=== PATIENT | female | born 1965 | race Caucasian/White ===

== ENCOUNTER → 2020-05-20 | Outpatient (CLI) | payer OTHER ==
[~2020-05-20] MED LIST: ACNE MED; ALPR1 PO; CODBUTACEC PO; ESCI10; ESTR2 PO; FLUO20; FLUO20 PO; FROV2.5; Flomax0.4 MG PO; LORAZE; OXYACE7.5T PO; PROM25 PO; PROP80ER PO; Percocet 5-3251 EACH PO; TIZANIDINE; ZIPSOR25 MG PO; ZOLM5 PO
== END | disposition home or self-care (01) ==
LOC: LAB 11:26 → LAB SHORT 11:26
DX: D22.4 Melanocytic nevi of scalp and neck (principal)
CPT/HCPCS: 88305